=== PATIENT | female | born 1945 | race Caucasian/White ===

== ENCOUNTER 2016-07-27 19:05 | Inpatient (IN) | payer OTHER ==
[~2016-07-27] VITALS: Ht 152.4 cm; Wt 39.0 kg
[~2016-07-27 19:05] MED LIST: AMLODIPINE BESY10 MG PO; ATENOLOL/CHLOR1 EAC1 PO; ATENOLOL50 MG PO; DIAZEPAM5 MG PO; EXTRA STRENGTH500 M1 PO; LEVAQUIN750 MG PO; LEVOFLOXACIN750 MG PO; LISINOPRIL40 MG PO; LORCET 5-325 M1 EACH PO; LOVASTATIN20 MG PO; METFORMIN HCL500 M1 PO; VENTOLIN HFA18 GM IH; VITAMIN D50000 UNI4 PO; XARELTO15 MG PO
[2016-07-27 19:54] LABS: HEMATOCRIT 31.4 % (36.0-46.0); MCH 26.7 PG (29.0-34.0); MCHC 30.3 G/DL (30.0-36.0); MCV 88.2 FL (83-99); MEAN PLAT.VOLUME 9.7 uM^3 (9.5-12.4); RBC DIS.WIDTH-CV 15.1 % (11.8-14.6); RBC DIS.WIDTH-SD 49.1 % (39-53); RED BLOOD COUNT 3.56 M/uL (3.80-5.20); WHITE BLOOD COUNT 20.5 K/uL (4.1-10.2)
[2016-07-27 19:58] LABS: PLATELET COUNT 196 K/uL (156-360)
[2016-07-27 20:01] LABS: BASE EXCESS -5.6 mEq/L (-3 to +3); BICARBONATE 19.2 mEq/L (22-26); CARBOXY HGB 1.5 % (0-5); COMMENTS - BLOOD GASES C+; DEVICE VENT; FI02 100 %; METHEMOGLOBIN 1.1 % (0-1.5); MODE A/C; PCO2 34 mm Hg (35-45); PO2 470 mm Hg (80-100); SITE RB; pH 7.36 (7.35-7.45)
[2016-07-27 20:02] LABS: MECHANICAL RATE 16 resp/min; PEEP 5 CM/H20; TIDAL VOLUME 400 ML; TOTAL RESP RATE 23 resp/min
[2016-07-27 20:04] LABS: AMYLASE 20 IU/L (1-118); CHLORIDE 93 mEq/L (99-109); POTASSIUM 3.8 mEq/L (3.7-5.4); SODIUM 131 mEq/L (136-147)
[2016-07-27 20:05] LABS: INTER. NORMALIZED RATIO 1.2; PROTHROMBIN TIME 12.2 (9.2-11.2); PTT 35.1 (25-32)
[2016-07-27 20:06] LABS: GLUCOSE 215 mg/dL (70-99)
[2016-07-27 20:07] LABS: ANION GAP 23 MEQ/L (2-14)
[2016-07-27 20:09] LABS: SERUM ETHYL ALCOHOL < 10 mg/dL
[2016-07-27 20:10] LABS: GFR ESTIMATE (CALCULATED) > 59 mL/min/
[2016-07-27 20:11] LABS: UREA NITROGEN (BUN) 24 mg/dL (9-23)
[2016-07-27 20:13] LABS: LIPASE 6 U/L (1.0-51.0)
[2016-07-27 20:16] LABS: TROP-I INTERPRETATION NEGATIVE; TROPONIN-I < 0.01 ng/mL (0.0-0.30)
[2016-07-27 22:21] LABS: ABS NEUTROPHIL COUNT 18.8; ANISOCYTOSIS 1+; ATYPICAL LYMPHOCYTE 0.4 %; BAND NEUTROPHILS 0.9 % (0-8.0); BURR CELLS 3+; EOSINOPHIL ABS CT 0.2; EOSINOPHILS 0.9 % (0-5.0); INSTRUMENT ABS NEUTROPHIL CT 17.9 K/uL; LYMPHOCYTES 4.4 % (15.0-45.0); OVALOCYTES 1+; PLAT.SUFFICIENCY ADEQUATE; POIKILOCYTOSIS 3+; SEG.NEUTROPHILS 90.8 % (46.0-76.0)
[2016-07-27 23:54] VITALS: BP 77/56
== END 2016-07-28 02:30 | DRG 208 ==
LOC: EME 19:05 → 5EAST 22:48 → EDOF 22:48 → 5EAST 07-28 00:06
PROVIDERS: Emergency Medicine
PROC: 5A1935Z Respiratory Ventilation, Less than 24 Consecutive Hours (ICD-10-PCS; principal; 2016-07-27)
DX: J96.01 Acute respiratory failure with hypoxia (principal); C78.01 Secondary malignant neoplasm of right lung; I46.9 Cardiac arrest, cause unspecified; I48.0 Paroxysmal atrial fibrillation; I10 Essential (primary) hypertension; E78.5 Hyperlipidemia, unspecified; E11.9 Type 2 diabetes mellitus without complications; Z66 Do not resuscitate; Z51.5 Encounter for palliative care; Z92.3 Personal history of irradiation; Z87.891 Personal history of nicotine dependence
CPT/HCPCS: 36600; 71010; 80048; 81003; 82150; 82803; 83605; 83690; 84484; 85025; 85610; 85730; 86850; 86900; 86901; 87040; 87077; 87147; 87186; 87801; 93005; 94002; 99281; 99285; G0480; J2270; J2543; J2704